=== PATIENT | male | born 1990 | race Caucasian/White ===

== ENCOUNTER 2017-09-07 05:54 | Day surgery (SDC) | payer BC ==
[2017-09-07] MEDS ORDERED: FENTAnyl 50 MCG/ML VIAL (07:51)
[2017-09-07] MEDS ORDERED: MIDAZOLAM 1 MG/ML 2 ML INJ ×2 (07:51→07:52)
== END 2017-09-07 16:05 | disposition home or self-care (01) ==
LOC: GIL 05:54
DX: K29.60 Other gastritis without bleeding (principal)
CPT/HCPCS: 43239; 88305; 88312